=== PATIENT | male | born 1965 | race Caucasian/White ===

== ENCOUNTER 2024-04-17 15:46 | Outpatient (CLI) | payer OTHER | END 2024-04-17 15:47 | disposition home or self-care (01) | LOC: CSHCP 15:46 | PROVIDERS: ATTEND Internal Medicine Critical Care Medicine | DX: J44.9 Chronic obstructive pulmonary disease, unspecified (principal) | CPT/HCPCS: 94060; 94664; 94726; 94729; 94760 ==